=== PATIENT | male | born 1995 | race Caucasian/White ===

== ENCOUNTER 2017-03-17 10:04 | Outpatient (CLI) | payer OTHER ==
[2017-03-17] MEDS ORDERED: IOTHALAMATE MEGLUMINE 50 ML VIAL IVP ONE (11:25)
[2017-03-17] MEDS ORDERED: GADOPENTETATE DIMEGLUMINE 5 ML VIAL IVP ONE (11:25)
[2017-03-17] MEDS ORDERED: LIDOCAINE 1% 50 ML MDV SUBQ ONE (11:25)
[2017-03-17] MEDS ORDERED: BUFFERED LIDOCAINE 10 ML SYRINGE IU ONE (11:25)
--- NOTE | 2017-03-17 13:05 | XRAY Report ---
FLUOROSCOPICALLY-GUIDED RIGHT SHOULDER INJECTION FOR MR ARTHROGRAM: 03/17/2017 CLINICAL INDICATION: Anterior dislocation. FINDINGS: Following obtaining informed consent, the patient's right shoulder was prepped and draped in the usual sterile fashion. The skin and soft tissues were anesthetized with lidocaine. A spinal needle was inserted into the right glenohumeral joint, and following confirmation of needle positioni ng, a combination of iodinated contrast, dilute gadolinium, and lidocaine was injected intraarticular ly. The patient tolerated the procedure well. No immediate complications. Spot image reveals no ev idence of contrast extravasation. IMPRESSION: SUCCESSFUL RIGHT SHOULDER INJECTION FOR MR ARTHROGRAM. FLUOROSCOPY TIME: 34 seconds; 1 spot image obtained. JOB #: [id number] EXT JOB #:[id number]
--- NOTE | 2017-03-17 17:11 | MRI Report ---
EXAM: RIGHT SHOULDER MRI ARTHROGRAM WITH CONTRAST EXAM DATE: 03/17/2017 12:16 PM. CLINICAL HISTORY: Rock climbing 2 years ago, fell and dislocated right shoulder. Repeat posterior dis locations. Concern for labral tear. COMPARISON: None. TECHNIQUE: Multiplanar, multisequence T1-weighted and fluid-sensitive sequences of the shoulder after an arthrographic injection of dilute gadolinium, dictated under a separate exam. Other: None. FINDINGS: Rotator cuff: Rotator cuff tendons appear intact. No evidence of rotator cuff tear or significant ten dinosis. No rotator cuff muscle atrophy or fatty replacement. Long head biceps tendon: Intact, demonstrating normal course, signal, and morphology. Labrum: Best demonstrated on axial images 11 through 14, the anteroinferior labrum appears partially stripped away from the anteroinferior glenoid, but is not displaced medially. Any stripping of the pe riosteum is minimal. Periosteum remains intact. There is a tiny linear high signal focus at the base of the superior labrum extending posterior from the biceps anchor. This tiny focus is angulated towar d the free margin of the labrum and is therefore considered a tiny tear. This is only partial thickne ss and does not extend to the full-thickness of the labrum. No associated labral defect or paralabral cyst. In addition, there is a tiny flap tear arising from the inferior labrum articular surface, bes t demonstrated on coronal image 12 and sagittal image 7. Bones and articular surfaces: There may be some articular cartilage thinning at the anteroinferior gl enoid. No Bankart fracture identified. Small chronic appearing Hill-Sachs impaction fracture with no associated marrow edema. Acromioclavicular joint: Normal appearance. Type II acromion. IMPRESSION: 1. Partial tear along the base of the anteroinferior labrum with some possible deficiency of the brooke cular cartilage. Variation of the glenolabral articular disruption. 2. Tiny additional tears at the superior and inferior labrum. 3. Small Hill-Sachs impaction fracture consistent with remote dislocation. [facility] MUSCULOSKELETAL RADIOLOGY SECTION Referring Provider Line: [phone] SITE ID: [id number]
== END 2017-03-17 10:05 | disposition home or self-care (01) ==
LOC: DI 10:04
PROVIDERS: ATTEND Physician Assistant
DX: S42.291A Other displaced fracture of upper end of right humerus, initial encounter for closed fracture (principal); S46.811A Strain of other muscles, fascia and tendons at shoulder and upper arm level, right arm, initial encounter
CPT/HCPCS: 23350; 73222; 77002; Q9961